=== PATIENT | male | born 1970 | race Caucasian/White ===

== ENCOUNTER 2017-07-08 23:51 | Emergency (ER) | payer MEDICAID ==
[~2017-07-08] VITALS: Ht 175.3 cm; Wt 79.4 kg
[2017-07-09 05:00] LABS: Basophils # (auto) 0 uL; Basophils % (auto) 0.3 % (0.0-2.0); Eosinophils # (auto) 0.3 uL; Eosinophils % (auto) 2.6 % (0.0-7.0); Hematocrit 43.8 % (41.0-53.0); Hemoglobin 14.8 g/dL (13.5-17.5); Lymphocytes # (auto) 1.8 uL; Lymphocytes % (auto) 15.3 % (10.0-50.0); Mean Corpuscular Hemoglobin 30.2 pg (28.0-32.0); Mean Corpuscular Hgb Conc. 33.8 g/dL (32.0-36.0); Mean Corpuscular Volume 89.4 fL (80.0-100.0); Monocytes # (auto) 1.1 uL; Monocytes % (auto) 9.3 % (0.0-12.0); Neutrophils # (auto) 8.6 uL; Neutrophils % (auto) 72.5 % (37.0-80.0); Nucleated Red Blood Cells % 0.2 %; Platelet Count (auto) 208 10^3/uL (140-450); Red Cell Distribution Width 12.4 % (11.8-14.3); White Blood Cell 11.8 10^3/uL (4.4-10.8)
[2017-07-09 05:14] LABS: Albumin 3.4 g/dL (3.4-5.0); BUN/Creatinine Ratio 10.7; Calcium 8.8 mg/dL (8.5-10.1); Potassium 3.9 mmol/L (3.5-5.1)
[2017-07-09 05:17] LABS: Bilirubin, Total 0.4 mg/dL (0.2-1.0); Total Protein 7.4 g/dL (6.4-8.2)
[2017-07-09 07:22] VITALS: BP 121/71
[2017-07-09] MEDS ORDERED: cefTRIAXone W LIDOCAINE 1 GM IM IM ONE (08:45)
[2017-07-09] MEDS ORDERED: cefTRIAXone SOD 1,000 MG VL ONE (08:47)
[2017-07-09] MEDS ORDERED: LIDOCAINE 1% HCL (LOCAL ANESTH.) INJ 20ML MDV ONE (08:47)
== END 2017-07-09 09:43 | disposition home or self-care (01) ==
LOC: ER 23:57
DX: N45.1 Epididymitis (principal); R30.0 Dysuria; R50.9 Fever, unspecified; F17.210 Nicotine dependence, cigarettes, uncomplicated; N43.3 Hydrocele, unspecified
CPT/HCPCS: 36415; 76870; 80053; 85025; 96372; 99285; J0696; J2001

== ENCOUNTER 2022-11-04 03:40 | Emergency (ER) | payer MEDICAID ==
[~2022-11-04] VITALS: Ht 175.3 cm; Wt 80.2 kg
[2022-11-04] MEDS ORDERED: IOHEXOL 350 MG/ML 100ML IJ ONE (04:24)
[2022-11-04] MEDS ORDERED: HYDROmorphone HCL 2 MG/ML VL/or syr IV ONE (04:45)
[2022-11-04] MEDS ORDERED: ONDANSETRON HCL 4 MG/2 ML VIAL IV ONE (04:45)
[2022-11-04 04:55] LABS: Basophils # (auto) 0 10 ^3/uL (0-0.2); Basophils % (auto) 0.5 % (0.0-2.0); Eosinophils # (auto) 0.3 10 ^3/uL (0-0.8); Eosinophils % (auto) 4.2 % (0.0-7.0); Hematocrit 44.7 % (41.0-53.0); Hemoglobin 15.1 g/dL (13.5-17.5); Lymphocytes # (auto) 2.4 10 ^3/uL (0.4-5.4); Lymphocytes % (auto) 30.6 % (10.0-50.0); Mean Corpuscular Hemoglobin 30.2 pg (28.0-32.0); Mean Corpuscular Hgb Conc. 33.7 g/dL (32.0-36.0); Mean Corpuscular Volume 89.5 fL (80.0-100.0); Monocytes # (auto) 0.7 10 ^3/uL (0-1.3); Neutrophils # (auto) 4.5 10 ^3/uL (1.6-8.6); Neutrophils % (auto) 55.7 % (37.0-80.0); Nucleated Red Blood Cells % 0.1 %; Red Blood Cells 4.99 10^6/uL (4.5-5.90); Red Cell Distribution Width 13.2 % (11.8-14.3)
[2022-11-04 05:15] LABS: Albumin 3.4 g/dL (3.4-5.0); Calcium 8.9 mg/dL (8.5-10.1)
[2022-11-04 05:20] LABS: BUN/Creatinine Ratio 12.5 (10.0-20.0); Bilirubin, Total 0.4 mg/dL (0.2-1.0)
[2022-11-04] MEDS ORDERED: SODIUM CHLORIDE 0.9% 1,000 ML IV ONE ×2 (06:45)
[2022-11-04 06:49] LABS: Urine Bacteria FEW /hpf (None Seen); Urine Blood 1+ /uL (Negative); Urine Specific Gravity 1.036 (1.001-1.035); Urine WBC 16 /hpf (0 - 3)
[2022-11-04] MEDS ORDERED: BACDST PO (07:12)
[2022-11-04 08:00] VITALS: BP 103/55
== END 2022-11-04 08:49 | disposition home or self-care (01) ==
LOC: ER 03:40
DX: N39.0 Urinary tract infection, site not specified (principal); R10.9 Unspecified abdominal pain
CPT/HCPCS: 36415; 71260; 74177; 80053; 81001; 82962; 83880; 84484; 85025; 96360; 96361; 99285; J7030; Q9967

== ENCOUNTER 2025-01-11 18:03 | Inpatient (IN) | payer MEDICAID ==
[~2025-01-11] VITALS: Ht 175.3 cm; Wt 89.0 kg
[~2025-01-11 18:03] MED LIST: BACDST PO
[2025-01-11 19:31] LABS: Hematocrit 48.8 % (41.0-53.0); Hemoglobin 16.9 g/dL (13.5-17.5); Mean Corpuscular Hemoglobin 30.5 pg (28.0-32.0); Mean Corpuscular Volume 88.1 fL (80.0-100.0); Nucleated Red Blood Cells % 0.1 %
--- NOTE | 2025-01-11 19:34 | ED.PDOC ---
History of Present Illness HPI Comments 55 y/o M presents with c/c generalized arm and leg pain. Patient endorses on exercising and working outside in the sun prior to then developing symptoms, earlier, today. Denies any fall, trauma, injuries, or further relevant events. Denies any additional symptoms at this time. Chief Complaint: Body Pain Time Seen by MD: 18:30 Primary Care Provider: YAHIR Ross Notes: Nurses Notes, Medications, Allergies Allergies: Coded Allergies: NO KNOWN ALLERGIES (Unverified , 02/19/12) Home Meds Active Scripts Sulfamethoxazole W/Trimethopri (Bactrim Ds Tablet) 1 Tab Tb, 1 TAB PO BID for 7 Days, #14 TAB Prov:BELINDA OGODRICH MD 11/04/22 Information Source: Patient Mode of Arrival: Ambulatory Past Medical History PAST MEDICAL HISTORY: Denies Surgical History: Denies all surgeries Family History Family History: Unobtainable Social History Smoker: Cigarettes, Less Than 1 Pack/Day Alcohol: Denies ETOH Use Drugs: Marijuana Lives In: Home All Other Systems: Reviewed and Negative (As per HPI) Physical Exam General Appearance: No Apparent Distress, Normal HEENT: Normal ENT Inspection, Pharynx Normal, TMs Normal, Other (dry mm) Neck: Full Range of Motion, Non-Tender, Normal, Normal Inspection Respiratory: Chest Non-Tender, Lungs Clear, No Accessory Muscle Use, No Respiratory Distress, Normal Breath Sounds Cardiovascular: No Edema, No JVD, No Murmur, No Gallop, Normal Peripheral Pulses, Regular Rate/Rhythm Breast Exam: Deferred Gastrointestinal: No Organomegaly, Non Tender, No Pulsatile Mass, Normal Bowel Sounds, Soft Genitalia: Deferred Pelvic: Deferred Rectal: Deferred Extremities: No calf tenderness, Normal capillary refill, Normal inspection, Normal range of motion, Non-tender, No pedal edema Musculoskeletal : Apperance: Normal Neurologic: Alert, cooling pan tender II-XII nml as Tested, No Motor Deficits, Normal Affect, Normal Mood, No Sensory Deficits Cerebellar Function: Normal Reflexes: Normal Skin: Dry, Normal Color, Warm Lymphatic: No Adenopathy Was a procedure done? Was a procedure done?: No Differential Dx Considerations may include: muscle spasms, sprain, electrolyte imbalance, dehydration, rhabdomyolysis, among others X-Ray, Labs, Meds, VS Vital Signs Date Time Temp Pulse Resp B/P (MAP) Pulse Ox O2 Delivery O2 Flow Rate FiO2 01/11/25 18:07 103 16 120/74 97 Lab Test 01/11/25 19:08 Range/Units White Blood Count 13.1 H 4.4-10.8 10^3/uL Red Blood Count 5.54 4.5-5.90 10^6/uL Hemoglobin 16.9 13.5-17.5 g/dL Hematocrit 48.8 41.0-53.0 % Mean Corpuscular Volume 88.1 80.0-100.0 fL Mean Corpuscular Hemoglobin 30.5 28.0-32.0 pg Mean Corpuscular Hemoglobin Concent 34.6 32.0-36.0 g/dL Red Cell Distribution Width 13.2 11.8-14.3 % Platelet Count 279 140-450 10^3/uL Mean Platelet Volume 8.8 6.9-10.8 fL Neutrophils (%) (Auto) 70.8 37.0-80.0 % Lymphocytes (%) (Auto) 17.7 10.0-50.0 % Monocytes (%) (Auto) 9.6 0.0-12.0 % Eosinophils (%) (Auto) 1.5 0.0-7.0 % Basophils (%) (Auto) 0.4 0.0-2.0 % Neutrophils # (Auto) 9.3 H 1.6-8.6 10 ^3/uL Lymphocytes # (Auto) 2.3 0.4-5.4 10 ^3/uL Monocytes # (Auto) 1.3 0-1.3 10 ^3/uL Eosinophils # (Auto) 0.2 0-0.8 10 ^3/uL Basophils # (Auto) 0.1 0-0.2 10 ^3/uL Nucleated Red Blood Cells 0.1 % Sodium Level 140 136-145 mmol/L Potassium Level 4.1 3.5-5.1 mmol/L Chloride Level 104 98-107 mmol/L Carbon Dioxide Level 27 20-31 mmol/L Anion Gap 9 5-15 Blood Urea Nitrogen 14 9-23 mg/dL Creatinine 1.91 H 0.700-1.30 mg/dL Glomerular Filtration Rate Calc 41 >90 mL/min BUN/Creatinine Ratio 7.3 L 10.0-20.0 Serum Glucose 75 74-106 mg/dL Calcium Level 10.4 8.7-10.4 mg/dL Total Bilirubin 0.4 0.2-1.0 mg/dL Aspartate Amino Transferase (AST) 25 13-40 U/L Alanine Aminotransferase (ALT) 24 7-40 U/L Alkaline Phosphatase 140 H 46-116 U/L Total Protein 7.8 5.7-8.2 g/dL Albumin 4.9 H 3.2-4.8 g/dL Time of 1ST Reevaluation: 19:00 Reevaluation 1ST: Unchanged Patient Education/Counseling: Diagnosis, Treatment, Need For Follow Up Family Education/Counseling: No Family Present Comments Patient presents with a feeling of generalized body weakness and on examination his mucous membranes membrane was dry. Patient reportedly has been working in the hot sun all day. His renal function has deteriorated from 1.2 baseline to 1.9 of creatinine. Patient will be admitted to the hospital for IV hydration and further monitoring of his renal function. Additional Information The following tests were ordered, and results were reviewed by me: CMP, CBC Additional Information was gathered from interviewing the following independent historians: N/A I reviewed and agreed with the following test results read by other providers: N/A I discussed treatment and results with medical personnel and: patient SEPSIS Sepsis Screen Date sepsis recognized/suspect: Jan 11, 2025 Time Sepsis recognized/suspect: 1806 Recent Procedure: No On Antibiotic Therapy: No Respiratory Rate >20: No Heart Rate >90: Yes Temp<36 C (96.8 F) or >38.3 C: No SBP <90 or MAP <65 mmHG: No New Acute Mental Status Change: No Is the patient on CPAP, BIPAP,: No Vital Signs Date Time Temp Pulse Resp B/P (MAP) Pulse Ox O2 Delivery O2 Flow Rate FiO2 01/11/25 18:07 103 16 120/74 97 Laboratory Tests Test 01/11/25 19:08 White Blood Count 13.1 10^3/uL (4.4-10.8) H Departure 1 Departure Time of Disposition: 21:26 Impression: Primary Impression: Dehydration Additional Impressions: Renal insufficiency Heat exhaustion, unspecified Heat exhaustion Disposition: ADMITTED INPATIENT Admit to: Med Surg Condition: Stable Discharged With: Self Critical Care Note Critical Care Time?: No Stability Stability form required: No Heart Score Heart Score: Heart Score Response (Comments) Value History N/A 0 EKG N/A 0 Age N/A 0 Risk Factors N/A 0 Troponin N/A 0 Total 0 I personally scribed for HELEN DIAL MD ([email or web address]) on 01/11/25 at 19:34. Electronically submitted by Abelardo Abdi ([email or web address]). HELEN DIAL MD Jan 11, 2025 19:34
[2025-01-11 19:37] LABS: Alanine Aminotransferase 24 U/L (7-40); Anion Gap 9 (5-15); BUN/Creatinine Ratio 7.3 (10.0-20.0); Blood Urea Nitrogen 14 mg/dL (9-23); Calcium 10.4 mg/dL (8.7-10.4); Carbon Dioxide 27 mmol/L (20-31); Chloride 104 mmol/L (98-107); Glucose 75 mg/dL (74-106); Potassium 4.1 mmol/L (3.5-5.1); Sodium 140 mmol/L (136-145); Total Protein 7.8 g/dL (5.7-8.2)
[2025-01-11 19:38] LABS: Bilirubin, Total 0.4 mg/dL (0.2-1.0)
[2025-01-11 19:43] LABS: Albumin 4.9 g/dL (3.2-4.8); Alkaline Phosphatase 140 U/L (46-116)
[2025-01-11] MEDS: SODIUM CHLORIDE 0.9% 1,000 ML IV SCH (21:45)
[2025-01-11] MEDS ORDERED: ACETAMINOPHEN 325 MG TAB PO PRN (21:45)
[2025-01-11] MEDS ORDERED: MORPHINE SULFATE INJ 2 MG/ml SYRG IV PRN (21:45)
[2025-01-11 22:09] LABS: Magnesium 2.2 mg/dL (1.6-2.6)
[2025-01-11 22:11] LABS: Cholesterol 189.0 mg/dL (< 200); HDL Cholesterol 51.0 mg/dL (40-59); Triglycerides 208.0 mg/dL (< 150)
[2025-01-11 22:14] LABS: INR 0.98 (0.9-1.15); Partial Thromboplastin Time 27.5 SEC (24.5-34.5); Prothrombin Time 10.4 sec (9.3-11.8)
[2025-01-11] MEDS ORDERED: AZITHROMYCIN 500MG/ 250ML 250 ML IV ONE (22:15)
[2025-01-11] MEDS ORDERED: NICOTINE 14 MG/24HR TOPICAL PATCH TD ONE (22:15)
--- NOTE | 2025-01-11 22:28 | DVHHPRES ---
History of Present Illness Resident Creating Document: RUDY SHAW History of Present Illness David Arevalo is a 55-year-old male patient who presents to ED with chief complaint of bilateral upper and lower limb cramping sensation after being exposed to to the sun (per patient he was outside from 10:00 a.m. to 3:00 p.m. on 01/11/2025), he started feeling cramping sensation at approximately 3:00 p.m. associated with dyspnea, nausea and cold chills. Patient says he has not had enough intake of fluids. Patient does complain of history of nocturia and he does mentioned previous history of UTI less than a year ago. Denies any other associated symptoms. Past medical history: Previous UTI Surgical history: Denies Family history: Noncontributory Social history: Lives in [place] with family (next of kin is ). Current tobacco use (30 pack-year history of smoking), occasional marijuana. Denies current alcohol and other drug abuse Allergies: Denies Home medication: Denies Patient seen and examined in [facility]. Currently bilateral cramps have mildly improved after IV fluids. No other complaints at this time. Past Medical History Per HPI Past Surgical History Per HPI Family History Per HPI Past Social History Per HPI Review of Systems Review of Systems Per HPI Allergies: Coded Allergies: NO KNOWN ALLERGIES (Unverified , 02/19/12) Medications Current Medications Medications Dose Ordered Sig/Mauro Route Start Time Stop Time Status Last Admin Dose Admin Sodium Chloride 1,000 ml @ 60 mls/hr [id number] IV 01/11/25 21:45 Acetaminophen 650 mg Q6HP PRN PO 01/11/25 21:45 Morphine Sulfate 2 mg Q4HPRN PRN IV 01/11/25 21:45 Enoxaparin Sodium 40 mg DAILY SC 01/12/25 10:00 Ceftriaxone Sodium 50 ml @ 100 mls/hr DAILY@2100 IV 01/12/25 21:00 Exam Vital Signs Vital Signs Date Time Temp Pulse Resp B/P (MAP) Pulse Ox O2 Delivery O2 Flow Rate FiO2 01/11/25 18:07 103 16 120/74 97 Exam Patient lying in bed, in no acute distress General: Lucid, unkempt, afebrile, mucosae are dry Cardiovascular: Normal S1 and S2, tachycardic. No murmurs, gallops or rubs Respiratory: Normal ventilation mechanics. Clear lung sounds on auscultation Abdomen: Soft, nontender, no organomegaly, normal bowel sounds MSK/skin: Mobilizes 4 limbs. Skin is dry and warm, scaly skin. Neurological: Oriented in 3 spheres. No motor no sensitive deficits. Pupils are isocoric and reactive Labs/Xrays Labs Test 01/11/25 19:08 Range/Units White Blood Count 13.1 H 4.4-10.8 10^3/uL Red Blood Count 5.54 4.5-5.90 10^6/uL Hemoglobin 16.9 13.5-17.5 g/dL Hematocrit 48.8 41.0-53.0 % Mean Corpuscular Volume 88.1 80.0-100.0 fL Mean Corpuscular Hemoglobin 30.5 28.0-32.0 pg Mean Corpuscular Hemoglobin Concent 34.6 32.0-36.0 g/dL Red Cell Distribution Width 13.2 11.8-14.3 % Platelet Count 279 140-450 10^3/uL Mean Platelet Volume 8.8 6.9-10.8 fL Neutrophils (%) (Auto) 70.8 37.0-80.0 % Lymphocytes (%) (Auto) 17.7 10.0-50.0 % Monocytes (%) (Auto) 9.6 0.0-12.0 % Eosinophils (%) (Auto) 1.5 0.0-7.0 % Basophils (%) (Auto) 0.4 0.0-2.0 % Neutrophils # (Auto) 9.3 H 1.6-8.6 10 ^3/uL Lymphocytes # (Auto) 2.3 0.4-5.4 10 ^3/uL Monocytes # (Auto) 1.3 0-1.3 10 ^3/uL Eosinophils # (Auto) 0.2 0-0.8 10 ^3/uL Basophils # (Auto) 0.1 0-0.2 10 ^3/uL Nucleated Red Blood Cells 0.1 % Sodium Level 140 136-145 mmol/L Potassium Level 4.1 3.5-5.1 mmol/L Chloride Level 104 98-107 mmol/L Carbon Dioxide Level 27 20-31 mmol/L Anion Gap 9 5-15 Blood Urea Nitrogen 14 9-23 mg/dL Creatinine 1.91 H 0.700-1.30 mg/dL Glomerular Filtration Rate Calc 41 >90 mL/min BUN/Creatinine Ratio 7.3 L 10.0-20.0 Serum Glucose 75 74-106 mg/dL Calcium Level 10.4 8.7-10.4 mg/dL Phosphorus Level 4.0 2.4-5.1 mg/dL Magnesium Level 2.2 1.6-2.6 mg/dL Total Bilirubin 0.4 0.2-1.0 mg/dL Aspartate Amino Transferase (AST) 25 13-40 U/L Alanine Aminotransferase (ALT) 24 7-40 U/L Alkaline Phosphatase 140 H 46-116 U/L Total Protein 7.8 5.7-8.2 g/dL Albumin 4.9 H 3.2-4.8 g/dL Triglycerides Level 208 H < 150 mg/dL Cholesterol Level 189 < 200 mg/dL LDL Cholesterol 120 H < 100 mg/dL HDL Cholesterol 51 40-59 mg/dL SEPSIS Sepsis Screen Date sepsis recognized/suspect: Jan 11, 2025 Time Sepsis recognized/suspect: 1806 Recent Procedure: No On Antibiotic Therapy: No Respiratory Rate >20: No Heart Rate >90: Yes Temp<36 C (96.8 F) or >38.3 C: No SBP <90 or MAP <65 mmHG: No New Acute Mental Status Change: No Is the patient on CPAP, BIPAP,: No Physician Orders Admit (01/11/25 21:44) Code Status (01/11/25 21:44) Vital Signs .PER UNIT PROTOCOL (01/11/25 21:44) Review Orders With Adm. (01/11/25 21:44) Regular Diet (01/12/25 Breakfast) Sodium Chloride 0.9% (01/11/25 21:45) Acetaminophen Tablet (Tylenol Tablet) (01/11/25 21:45) Notify Md Of Changes From Base (01/11/25 21:44) Advance Directive (01/11/25 21:44) Chest Two Views Routine (01/12/25 04:00) Patient Condition (01/11/25 21:44) Allergies (01/11/25 21:44) Morphine Sulfate Injection (01/11/25 21:45) Enoxaparin Sodium (Lovenox) (01/12/25 10:00) Oxygen By Nasal Cannula (01/11/25 21:44) Stat Ekg For Chest Pain (01/11/25 21:44) Notify Md Of Changes From Base (01/11/25 21:44) Obstetrics Nurse Practitioner For 24 Hours (01/11/25 21:44) Emergency Dysrhythmia Protocol (01/11/25 21:44) Rhythm Strips Once Every Shift (01/11/25 21:44) Sodium Chloride 0.9% (01/11/25 21:45) Blood Culture (01/11/25 21:44) Urine Bacterial Culture (01/11/25 21:44) Respiratory Culture W/ Gs (01/11/25 21:44) Vitamin D, 25-Hydroxy (01/11/25:44) Vitamin B12 (01/11/25:44) Urinalysis (01/11/25 21:44) Thyroid Stimulating Hormone (01/11/25 21:44) PTPTT (01/11/25 21:44) Lactic Acid W/ Reflex Order (01/11/25 21:44) Hemoglobin A1c (01/11/25 21:44) Drug Screen (01/11/25 21:44) Ceftriaxone 1gm/50ml (Rocephin) (01/12/25 21:00) Ceftriaxone 1gm/50ml (Rocephin) (01/11/25 22:00) Azithromycin 500mg/ 250ml (Zithromax 50 (01/12/25 10:00) Azithromycin 500mg/ 250ml (Zithromax 50 (01/11/25 22:15) Nicotine 14mg/24hr (Nicoderm 14mg/24hr) (01/11/25 22:15) Nicotine 14mg/24hr (Nicoderm 14mg/24hr) (01/12/25 10:00) Electrocardigram (01/11/25 22:10) Vital Signs Date Time Temp Pulse Resp B/P (MAP) Pulse Ox O2 Delivery O2 Flow Rate FiO2 01/11/25 18:07 103 16 120/74 97 Laboratory Tests Test 01/11/25 19:08 Lactic Acid Level Pending White Blood Count 13.1 10^3/uL (4.4-10.8) H Assessment/Plan Assessment/Plan Sepsis probably secondary to pneumonia versus UTI Probable community-acquired pneumonia Gram-positive/Gram-negative Rule out UTI Patient has 30 pack-year history of smoking, no follow up with pulmonology. Currently with no oxygen requirement Ordered pancultures (blood, sputum, urine) Pending urine analysis Currently under empiric IV antibiotic (azithromycin and ceftriaxone) Indicated IV fluid resuscitation ALLISON hemodynamically mediated (VMN) Dehydration Indicated fluid resuscitation Ordered multiple electrolytes to evaluate replenishment Tobacco abuse Patient has 30 pack-year history of smoking, no follow up with pulmonology. Counseled for over 16 minutes on cessation Patient agreed on using nicotine patch. Goals of care discussed with patient for over18 minutes: Full code status Discussed plan with Dr. Boykin, patient and nurses: Admitted patient to [facility], indicated IV fluids and empiric IV antibiotic. Pending culture, chest x- ray and laboratory workup. Plan discussed with: Patient, Other (Nurses) My Orders Orders - RUDY SHAW RESIDENT Procedure Category Date Status Time Admit ADMIT 01/11/25 Transmitted 21:44 Code Status CODE 01/11/25 Transmitted 21:44 Vital Signs [facility] 01/11/25 In Process 21:44 Review Orders With [facility] 01/11/25 In Process Adm. 21:44 Regular Diet DIET 01/12/25 Transmitted Breakfast Sodium Chloride 0.9% [facility] 01/11/25 In Process 21:45 Acetaminophen Tablet [facility] 01/11/25 In Process (Tylenol Tablet) 21:45 Notify Of Changes [facility] 01/11/25 In Process From Base 21:44 Advance Directive [facility] 01/11/25 In Process 21:44 Chest Two Views XY 01/12/25 Logged Routine 04:00 Patient Condition ORDERS 01/11/25 Transmitted 21:44 Allergies [facility] 01/11/25 In Process 21:44 Morphine Sulfate PHA 01/11/25 In Process Injection 21:45 Enoxaparin Sodium [facility] 01/12/25 In Process (Lovenox) 10:00 Oxygen By Nasal RT 01/11/25 Transmitted Cannula 21:44 Stat Ekg For Chest [facility] 01/11/25 In Process Pain 21:44 Notify Of Changes [facility] 01/11/25 In Process From Base 21:44 Obstetrics Nurse Practitioner For [facility] 01/11/25 In Process 24 Hours 21:44 Emergency Dysrhythmia [facility] 01/11/25 In Process Protocol 21:44 Rhythm Strips Once [facility] 01/11/25 In Process Every Shift 21:44 Sodium Chloride 0.9% [facility] 01/11/25 In Process 21:45 Blood Culture [facility] 01/11/25 In Process 21:44 Urine Bacterial [facility] 01/11/25 Logged Culture 21:44 Respiratory Culture [facility] 01/11/25 Logged W/ Gs 21:44 Vitamin D, 25-Hydroxy LAB 01/11/25 In Process 21:44 Vitamin B12 LAB 01/11/25 In Process 21:44 Urinalysis LAB 01/11/25 Logged 21:44 Thyroid Stimulating LAB 01/11/25 In Process Hormone 21:44 PTPTT LAB 01/11/25 In Process 21:44 Lactic Acid W/ Reflex LAB 01/11/25 In Process Order 21:44 Hemoglobin A1c LAB 01/11/25 In Process 21:44 Drug Screen LAB 01/11/25 Logged 21:44 Ceftriaxone 1gm/50ml PHA 01/12/25 In Process (Rocephin) 21:00 Ceftriaxone 1gm/50ml PHA 01/11/25 In Process (Rocephin) 22:00 Azithromycin 500mg/ PHA 01/12/25 Transmitted 250ml (Zithromax 50 10:00 Azithromycin 500mg/ PHA 01/11/25 Transmitted 250ml (Zithromax 50 22:15 Nicotine 14mg/24hr PHA 01/11/25 Transmitted (Nicoderm 14mg/24hr) 22:15 Nicotine 14mg/24hr PHA 01/12/25 Transmitted (Nicoderm 14mg/24hr) 10:00 Electrocardigram EKG 01/11/25 Transmitted 22:10 Date of Service: Jan 11, 2025 Billing Provider: RADHIKA BOYKIN MD Common Visit Codes: 58032-SPSODLZ INP/OBS CARE (HIGH) Secondary Visit Codes: 33255-AOOPJJIC CARE PLAN 30 MINUTES RUDY SHAW Jan 11, 2025 22:28
[2025-01-11] MEDS: SODIUM CHLORIDE 0.9% 1,000 ML IV ONE (23:00)
[2025-01-11 23:04] VITALS: PULSE 77; RESP 18; O2SAT 99
[2025-01-12] VITALS (8 sets, daily range): BP systolic 99–134; BP diastolic 64–89; PULSE 79–88; RESP 16–18; TEMP 97.7–98.3; O2SAT 94–98
[2025-01-12 01:59] LABS: Cannabinoid Screen, Urine Neg (NEGATIVE)
[2025-01-12 02:05] LABS: Urine Budding Yeast FEW /hpf (None Seen); Urine Protein, UAD 1+ (Negative)
[2025-01-12 02:12] LABS: Amphetamine Screen, Urine Pos (NEGATIVE); Barbiturate Scree,Urine Neg (NEGATIVE); Benzodiazephine Screen, Urine Neg (NEGATIVE); Cocaine Screen, Urine Neg (NEGATIVE); Opiate Scree,Urine Neg (NEGATIVE); Phencyclidine Screen, Urine Neg (NEGATIVE)
[2025-01-12] MEDS ORDERED: AZITHROMYCIN 500MG/ 250ML 250 ML IV ONE (04:35)
[2025-01-12] MEDS ORDERED: NICOTINE 14 MG/24HR TOPICAL PATCH TD ONE (04:35)
[2025-01-12] MEDS: NICOTINE 14 MG/24HR TOPICAL PATCH TD ONE (04:36)
[2025-01-12] MEDS: AZITHROMYCIN 500MG/ 250ML 250 ML IV ONE (04:50)
[2025-01-12 06:15] LABS: Hematocrit 44.8 % (41.0-53.0); Hemoglobin 15.4 g/dL (13.5-17.5); Mean Corpuscular Hemoglobin 30.4 pg (28.0-32.0); Mean Corpuscular Volume 88.5 fL (80.0-100.0); Nucleated Red Blood Cells % 0.1 %
[2025-01-12 06:39] LABS: Alanine Aminotransferase 20 U/L (7-40); Albumin 4.2 g/dL (3.2-4.8); Anion Gap 8 (5-15); BUN/Creatinine Ratio 9.3 (10.0-20.0); Bilirubin, Total 0.4 mg/dL (0.2-1.0); Blood Urea Nitrogen 14 mg/dL (9-23); Calcium 9.6 mg/dL (8.7-10.4); Carbon Dioxide 29 mmol/L (20-31); Chloride 104 mmol/L (98-107); Potassium 4.5 mmol/L (3.5-5.1); Sodium 141 mmol/L (136-145); Total Protein 6.7 g/dL (5.7-8.2)
[2025-01-12 06:50] LABS: Alkaline Phosphatase 124 U/L (46-116); Glucose 108 mg/dL (74-106)
--- NOTE | 2025-01-12 08:41 | DVH ---
CLINICAL INFORMATION: Sepsis. Rule out pneumonia. TECHNIQUE: Frontal and lateral chest radiographs were obtained. COMPARISON: CT CT CHEST/AB/PL W CON- IV ONLY on DOS: 11/04/22 FINDINGS: Lungs: Clear. Cardiac: Heart size is within normal limits. Pulmonary vasculature: Unremarkable Mediastinum/coral: Within normal limits. Bones: No evidence of acute osseous abnormality. Other: No other significant finding. IMPRESSION: No evidence of acute disease in the chest.
[2025-01-12] MEDS: ENOXAPARIN SOD 40 MG/0.4 ML SYRINGE SC SCH (09:21)
--- NOTE | 2025-01-12 21:53 | DVHPN2 ---
Subjective The patient is seen and examined at bedside. Complain of chest pain and cramping of his muscles. Reviewed: Care Plan, H&P, Labs, Medications, Previous Orders, Radiology Changes from previous H/P or p: No Changes Objective Vitals Vital Signs Date Time Temp Pulse Resp B/P (MAP) Pulse Ox O2 Delivery O2 Flow Rate FiO2 01/12/25 21:00 97.7 87 16 105/72 (83) 95 97.7 01/12/25 08:00 Room Air* 0 21 Intake/Output Intake and Output 01/12/25 07:00 Intake Total 100 ml Balance 100 ml Intake Oral 0 ml IV Total 100 ml # Voids 1 General Appearance: Alert, Oriented X3, Cooperative, No acute distress HEENT: Atraumatic, PERRLA, EOMI Neck: Supple Lungs: Clear to auscultation, Normal air movement Cardiovascular: Regular rate, Normal S1, Normal S2, No murmurs, Gallops, Rubs Abdomen: Normal bowel sounds, Soft, No tenderness Neuro: Cranial nerves 3-12 NL Psych/Mental Status: Mental status NL Medications Current Medications Medications Dose Ordered Sig/Mauro Route Start Time Stop Time Status Last Admin Dose Admin Sodium Chloride 1,000 ml @ 60 mls/hr [id number] IV 01/11/25 21:45 01/12/25 14:25 60 MLS/HR Acetaminophen 650 mg Q6HP PRN PO 01/11/25 21:45 Morphine Sulfate 2 mg Q4HPRN PRN IV 01/11/25 21:45 Enoxaparin Sodium 40 mg DAILY SC 01/12/25 10:00 01/12/25 09:21 40 MG Ceftriaxone Sodium 50 ml @ 100 mls/hr DAILY@0600 IV 01/13/25 06:00 Azithromycin 250 ml @ 125 mls/hr DAILY@0600 IV 01/13/25 06:00 Nicotine 1 patch DAILY@0600 TD 01/13/25 06:00 Laboratory Results Laboratory Tests 01/12/25 05:14 Chemistry Test 01/12/25 05:14 Albumin 4.2 g/dL (3.2-4.8) Calcium Level 9.6 mg/dL (8.7-10.4) Total Protein 6.7 g/dL (5.7-8.2) LFT Test 01/12/25 05:14 Alanine Aminotransferase (ALT) 20 U/L (7-40) Alkaline Phosphatase 124 U/L (46-116) H Aspartate Amino Transferase (AST) 20 U/L (13-40) Total Bilirubin 0.4 mg/dL (0.2-1.0) Urinalysis Test 01/11/25 23:59 Urine Color Yellow (Yellow) Urine Clarity Turbid (Clear) H Urine pH 5.5 (5.0-9.0) Urine Specific [place] 1.027 (1.001-1.035) Urine Protein 1+ (Negative) H Urine Ketones Negative (Negative) Urine Blood Negative /uL (Negative) Urine Nitrite Negative (Negative) Urine Bilirubin Negative (Negative) Urine Urobilinogen Normal mg/dL (Negative) Urine Leukocyte Esterase 1+ /uL (Negative) Urine RBC 14 /hpf (0 - 3) Urine Microscopic WBC 19 /HPF (0-3) H Urine Squamous Epithelial Cells Few /hpf (<5) Urine Transitional Epithelial Cells Few /hpf (<2) Urine Renal Epithelial Cells Few /hpf (None Seen) Urine Bacteria Mod /hpf (None Seen) H Urine Hyaline Casts Many /lpf (0 - 2) Urine Granular Casts Few /lpf (0) Urine Mucus Few (None Seen) Urine Yeast (Budding) Few /hpf (None Seen) Urine Glucose Normal mg/dL (Normal) Labs and/or images reviewed: Labs reviewed by me Assessment/Plan Assessment/Plan Sepsis probably secondary to pneumonia versus UTI Probable community-acquired pneumonia Gram-positive/Gram-negative Rule out UTI ALLISON hemodynamically mediated (VMN) Dehydration Tobacco abuse Continuing current management. We will monitor electrolytes and lab. Patient has 30 pack-year history of smoking, no follow up with pulmonology. Counseled for over 20 minutes on cessation Patient agreed on using nicotine patch. Continuing with IV antibiotic Rocephin and Zithromax. Continuing with nebulizer. This medical document was created using an electronic medical record system with [employer] direct computerized dictation system. Although this document has been carefully reviewed, there may still be some phonetic and typographical errors. These areas are purely typographical due to imperfections of the software programs, and do not reflect any compromise in the patient's medical care. Plan discussed with: Patient Date of Service: Jan 12, 2025 Billing Provider: PARVEEN MCDOWELL MD Common Visit Codes: 60901-[id number] INP/OBS CARE(HIGH) PARVEEN MCDOWELL MD Jan 12, 2025 21:53
[2025-01-13 01:00] VITALS: BP 124/86; PULSE 92; RESP 15; TEMP 97.9; O2SAT 97
[2025-01-13 05:00] VITALS: BP 111/75; PULSE 81; RESP 15; TEMP 98.1; O2SAT 96
[2025-01-13] MEDS: NICOTINE 14 MG/24HR TOPICAL PATCH TD SCH (05:37)
[2025-01-13] MEDS: AZITHROMYCIN 500MG/ 250ML 250 ML IV SCH (05:37)
[2025-01-13 08:00] VITALS: PULSE 86; RESP 17; O2SAT 98
[2025-01-13 09:00] VITALS: BP 116/72; PULSE 86; RESP 17; TEMP 97.5; O2SAT 98
[2025-01-13 10:26] LABS: Hematocrit 43.6 % (41.0-53.0); Hemoglobin 15.1 g/dL (13.5-17.5); Mean Corpuscular Hemoglobin 30.6 pg (28.0-32.0); Mean Corpuscular Volume 88.6 fL (80.0-100.0); Nucleated Red Blood Cells % 0.0 %
[2025-01-13 10:30] LABS: Chloride 105 mmol/L (98-107); Potassium 4.6 mmol/L (3.5-5.1); Sodium 140 mmol/L (136-145)
[2025-01-13 10:31] LABS: Anion Gap 6 (5-15); Carbon Dioxide 29 mmol/L (20-31)
[2025-01-13 10:32] LABS: Calcium 9.0 mg/dL (8.7-10.4)
[2025-01-13 10:37] LABS: BUN/Creatinine Ratio 8.9 (10.0-20.0); Blood Urea Nitrogen 10 mg/dL (9-23)
--- NOTE | 2025-01-13 10:56 | DVHPN2 ---
Subjective The patient is seen and examined at bedside. Complain of chest pain and cramping of his muscles. Reviewed: Care Plan, H&P, Labs, Medications, Previous Orders, Radiology Objective Vitals Vital Signs Date Time Temp Pulse Resp B/P (MAP) Pulse Ox O2 Delivery O2 Flow Rate FiO2 01/13/25 09:00 97.5 86 17 116/72 (87) 98 97.5 01/12/25 20:00 Room Air* 0 21 Intake/Output Intake and Output 01/13/25 07:00 Intake Total 2755 ml Output Total 900 ml Balance 1855 ml Intake Oral 2705 ml IV Total 50 ml Output Urine Total 900 ml # Voids 3 # Bowel Movements 3 General Appearance: Alert, Oriented X3, Cooperative, No acute distress HEENT: Atraumatic, PERRLA, EOMI Neck: Supple Lungs: Clear to auscultation, Normal air movement Cardiovascular: Regular rate, Normal S1, Normal S2, No murmurs, Gallops, Rubs Abdomen: Normal bowel sounds, Soft, No tenderness Neuro: Cranial nerves 3-12 NL Psych/Mental Status: Mental status NL Medications Current Medications Medications Dose Ordered Sig/Mauro Route Start Time Stop Time Status Last Admin Dose Admin Sodium Chloride 1,000 ml @ 60 mls/hr [id number] IV 01/11/25 21:45 01/13/25 07:05 60 MLS/HR Acetaminophen 650 mg Q6HP PRN PO 01/11/25 21:45 Morphine Sulfate 2 mg Q4HPRN PRN IV 01/11/25 21:45 Enoxaparin Sodium 40 mg DAILY SC 01/12/25 10:00 01/12/25 09:21 40 MG Ceftriaxone Sodium 50 ml @ 100 mls/hr DAILY@0600 IV 01/13/25 06:00 01/13/25 04:57 100 MLS/HR Azithromycin 250 ml @ 125 mls/hr DAILY@0600 IV 01/13/25 06:00 01/13/25 05:37 125 MLS/HR Nicotine 1 patch DAILY@0600 TD 01/13/25 06:00 01/13/25 05:37 1 PATCH Laboratory Results Chemistry Test 01/13/25 10:01 Calcium Level Pending Urinalysis Test 01/11/25 23:59 Urine Color Yellow (Yellow) Urine Clarity Turbid (Clear) H Urine pH 5.5 (5.0-9.0) Urine Specific [place] 1.027 (1.001-1.035) Urine Protein 1+ (Negative) H Urine Ketones Negative (Negative) Urine Blood Negative /uL (Negative) Urine Nitrite Negative (Negative) Urine Bilirubin Negative (Negative) Urine Urobilinogen Normal mg/dL (Negative) Urine Leukocyte Esterase 1+ /uL (Negative) Urine RBC 14 /hpf (0 - 3) Urine Microscopic WBC 19 /HPF (0-3) H Urine Squamous Epithelial Cells Few /hpf (<5) Urine Transitional Epithelial Cells Few /hpf (<2) Urine Renal Epithelial Cells Few /hpf (None Seen) Urine Bacteria Mod /hpf (None Seen) H Urine Hyaline Casts Many /lpf (0 - 2) Urine Granular Casts Few /lpf (0) Urine Mucus Few (None Seen) Urine Yeast (Budding) Few /hpf (None Seen) Urine Glucose Normal mg/dL (Normal) Microbiology Microbiology Date/Time Source Procedure Growth Status 01/11/25 23:59 Voided Urine Urine Culture - Preliminary Resulted 01/11/25 22:04 Blood Blood Culture - Preliminary NO GROWTH AFTER 24 HOURS OF INCUBATION. Resulted Assessment/Plan Assessment/Plan Sepsis probably secondary to pneumonia versus UTI Probable community-acquired pneumonia Gram-positive/Gram-negative Rule out UTI ALLISON hemodynamically mediated (VMN) Dehydration Tobacco abuse Continuing current management. We will monitor electrolytes and lab. Patient has 30 pack-year history of smoking, no follow up with pulmonology. Counseled for over 20 minutes on cessation Patient agreed on using nicotine patch. Continuing with IV antibiotic Rocephin and Zithromax. Continuing with nebulizer. This medical document was created using an electronic medical record system with [employer] direct computerized dictation system. Although this document has been carefully reviewed, there may still be some phonetic and typographical errors. These areas are purely typographical due to imperfections of the software programs, and do not reflect any compromise in the patient's medical care. My Orders Orders - PARVEEN MCDOWELL MD Procedure Category Date Status Time Complete Blood Count LAB 01/13/25 In Process 05:00 Complete Blood Count LAB 01/14/25 Verified 05:00 Complete Blood Count LAB 01/15/25 Verified 05:00 Complete Blood Count LAB 01/16/25 Verified 05:00 Complete Blood Count LAB 01/17/25 Verified 05:00 Basic Metabolic Panel LAB 01/13/25 In Process 05:00 Basic Metabolic Panel LAB 01/14/25 Verified 05:00 Basic Metabolic Panel LAB 01/15/25 Verified 05:00 Basic Metabolic Panel LAB 01/16/25 Verified 05:00 Basic Metabolic Panel LAB 01/17/25 Verified 05:00 PARVEEN MCDOWELL MD Jan 13, 2025 10:56
[2025-01-13 11:10] LABS: Glucose 69 mg/dL (74-106)
[2025-01-13] MEDS ORDERED: AZIT-185 PO (12:25)
--- NOTE | 2025-01-13 12:26 | DVHDS2 ---
Discharge Summary Date of Admission Jan 11, 2025 at 21:44 Date of Discharge: Jan 13, 2025 Admitting Diagnosis Sepsis probably secondary to pneumonia versus UTI Probable community-acquired pneumonia Gram-positive/Gram-negative Rule out UTI ALLISON hemodynamically mediated (VMN) Dehydration Tobacco abuse Labs/Diagnostic Data: Laboratory Results Test 01/13/25 10:01 01/12/25 05:14 01/11/25 23:59 01/11/25 19:08 White Blood Count 7.2 10^3/uL (4.4-10.8) Red Blood Count 4.92 10^6/uL (4.5-5.90) Hemoglobin 15.1 g/dL (13.5-17.5) Hematocrit 43.6 % (41.0-53.0) Mean Corpuscular Volume 88.6 fL (80.0-100.0) Mean Corpuscular Hemoglobin 30.6 pg (28.0-32.0) Mean Corpuscular Hemoglobin Concent 34.6 g/dL (32.0-36.0) Red Cell Distribution Width 12.9 % (11.8-14.3) Platelet Count 209 10^3/uL (140-450) Mean Platelet Volume 8.9 fL (6.9-10.8) Neutrophils (%) (Auto) 59.3 % (37.0-80.0) Lymphocytes (%) (Auto) 27.7 % (10.0-50.0) Monocytes (%) (Auto) 9.1 % (0.0-12.0) Eosinophils (%) (Auto) 3.3 % (0.0-7.0) Basophils (%) (Auto) 0.6 % (0.0-2.0) Neutrophils # (Auto) 4.3 10 ^3/uL (1.6-8.6) Lymphocytes # (Auto) 2.0 10 ^3/uL (0.4-5.4) Monocytes # (Auto) 0.7 10 ^3/uL (0-1.3) Eosinophils # (Auto) 0.2 10 ^3/uL (0-0.8) Basophils # (Auto) 0 10 ^3/uL (0-0.2) Nucleated Red Blood Cells 0.0 % Sodium Level 140 mmol/L (136-145) Potassium Level 4.6 mmol/L (3.5-5.1) Chloride Level 105 mmol/L (98-107) Carbon Dioxide Level 29 mmol/L (20-31) Anion Gap 6 (5-15) Blood Urea Nitrogen 10 mg/dL (9-23) Creatinine 1.12 mg/dL (0.700-1.30) Glomerular Filtration Rate Calc 77 mL/min (>90) BUN/Creatinine Ratio 8.9 (10.0-20.0) Serum Glucose 69 mg/dL (74-106) Calcium Level 9.0 mg/dL (8.7-10.4) Total Bilirubin 0.4 mg/dL (0.2-1.0) Aspartate Amino Transferase (AST) 20 U/L (13-40) Alanine Aminotransferase (ALT) 20 U/L (7-40) Alkaline Phosphatase 124 U/L (46-116) Total Protein 6.7 g/dL (5.7-8.2) Albumin 4.2 g/dL (3.2-4.8) Urine Color Yellow (Yellow) Urine Clarity Turbid (Clear) Urine pH 5.5 (5.0-9.0) Urine Specific [place] 1.027 (1.001-1.035) Urine Protein 1+ (Negative) Urine Ketones Negative (Negative) Urine Blood Negative /uL (Negative) Urine Nitrite Negative (Negative) Urine Bilirubin Negative (Negative) Urine Urobilinogen Normal mg/dL (Negative) Urine Leukocyte Esterase 1+ /uL (Negative) Urine RBC 14 /hpf (0 - 3) Urine Microscopic WBC 19 /HPF (0-3) Urine Squamous Epithelial Cells Few /hpf (<5) Urine Transitional Epithelial Cells Few /hpf (<2) Urine Renal Epithelial Cells Few /hpf (None Seen) Urine Bacteria Mod /hpf (None Seen) Urine Hyaline Casts Many /lpf (0 - 2) Urine Granular Casts Few /lpf (0) Urine Mucus Few (None Seen) Urine Yeast (Budding) Few /hpf (None Seen) Urine Glucose Normal mg/dL (Normal) Urine Opiates Screen Neg (NEGATIVE) Urine Fentanyl Screen Neg (NEGATIVE) Urine Barbiturates Screen Neg (NEGATIVE) Urine Phencyclidine Screen Neg (NEGATIVE) Urine Amphetamines Screen Pos (NEGATIVE) Urine Benzodiazepines Screen Neg (NEGATIVE) Urine Cocaine Screen Neg (NEGATIVE) Urine Cannabinoids Screen Neg (NEGATIVE) Prothrombin Time 10.4 sec (9.3-11.8) Prothrombin Time INR 0.98 (0.9-1.15) Activated Partial Thromboplast Time 27.5 SEC (24.5-34.5) Hemoglobin A1c 5.8 % A1C (<5.7) Lactic Acid Level 1.9 mmol/L (0.4-2.0) Phosphorus Level 4.0 mg/dL (2.4-5.1) Magnesium Level 2.2 mg/dL (1.6-2.6) Triglycerides Level 208 mg/dL (< 150) Cholesterol Level 189 mg/dL (< 200) LDL Cholesterol 120 mg/dL (< 100) HDL Cholesterol 51 mg/dL (40-59) Vitamin B12 Level 370 pg/mL (211-911) Vitamin D 25-Hydroxy 32.1 ng/mL (30.0-100) Thyroid Stimulating Hormone (TSH) 2.24 uIU/mL (0.55-4.78) Other Laboratory Tests 01/13/25 10:01 Brief Hx & Hospital Course: This is a 55 years old male come into emergency department because bilateral upper and lower extremity cramping, the patient said he started having this problem after he exposed to the sun. The patient was outside from 10:00 a.m. to 3:00 p.m. on 01/11/2025. He then feel cramping with dyspnea, nausea, cold chills. The patient did not take a lot of fluid. The patient was admitted. The patient was found to have pneumonia with Gram-positive negative bacteria. Urine culture also sent for possible UTI per the sample come back with less than 10,000 colonies. Blood culture is negative x2. The patient was on Rocephin 1 g IV q.day and Zithromax 500 mg IV q.day. The patient also was given IV fluid for resuscitation. The patient feel much better today. I am going to discharge the patient home. Advised the patient to drink plenty of water when he out on the son to prevent heat stroke. Advised the patient to follow up with primary care physician 1-2 weeks. Activity as tolerated. Diet per home diet. Physical exam: HEENT: Normocephalic atraumatic pupils equal react to light and accommodation. Extraocular muscles intact, conjunctiva pink, oropharynx moist, no thrush, no exudate. Lymphatic: No lymphadenopathy Cardiovascular exam: S1, S2 was heard. No murmurs, rubs, gallops Lung: Clear on auscultation bilaterally, no wheeze, rale, rhonchi. GI: Abdominal soft, nondistended, nontenderness, positive bowel sounds. Extremity: No crepitus, cyanosis, edema. Pedal pulses present bilateral. Full range of motion. Skin: Normal turgor, no rash. Psych: Alert, oriented x3. Neurology: No focal deficits, cranial nerve II to XII grossly intact. This medical document was created using an electronic medical record system with [employer] direct computerized dictation system. Although this document has been carefully reviewed, there may still be some phonetic and typographical errors. These areas are purely typographical due to imperfections of the software programs, and do not reflect any compromise in the patient's medical care. Condition at Discharge: Stable Final Diagnosis/Problems List Sepsis probably secondary to pneumonia Community-acquired pneumonia Gram-positive/Gram-negative Rule out UTI ALLISON hemodynamically mediated (VMN) Dehydration Tobacco abuse Discharge Disposition: Home Discharge Instruct/Medications Diet: Regular Activity: No Restrictions, As Tolerated Follow Up/Referral: PCP 1-2 WEEKS Medications: ZPAK UNTIL FINISH Scheduled Azithromycin (Zithromax Tablet), 250 MG PO DAILY Discharge Statement: "Patient was advised to return to the ER or call 911 if any headaches, dizziness, shortness of breath, chest pain, abdominal pain, bleeding, fevers, or worsening of medical condition. Patient was counseled about treatment plan, medications, possible side effects, patientverbalized understanding. All questions were answered to the best of my ability. This discharge took greater then 30 minutes in planning, reviewing documentation, counseling the patient, and discussing with other team members." ASSESSMENT ASSESSMENT Assessment PNA Date of Service: Jan 13, 2025 Billing Provider: PARVEEN MCDOWELL MD Common Visit Codes: 71957-WZE/OBS DISCH DAY >30min PARVEEN MCDOWELL MD Jan 13, 2025 12:26
[2025-01-13 13:00] VITALS: BP 118/70; PULSE 83; RESP 17; TEMP 98; O2SAT 97
[2025-01-13 14:36] VITALS: BP 118/70; PULSE 83; RESP 17; TEMP 36.7; O2SAT 97
== END 2025-01-13 16:30 | disposition home or self-care (01) | DRG 720 ==
LOC: ER 18:06 → OVERFLOW 21:44 → CENTRAL 01-12 01:45
PROVIDERS: ADMIT Internal Medicine; ATTEND Internal Medicine
DX: A41.50 Gram-negative sepsis, unspecified (principal); N17.0 Acute kidney failure with tubular necrosis; J15.69 Pneumonia due to other Gram-negative bacteria; J15.9 Unspecified bacterial pneumonia; E86.0 Dehydration; N39.0 Urinary tract infection, site not specified; F17.210 Nicotine dependence, cigarettes, uncomplicated; T67.5XXA Heat exhaustion, unspecified, initial encounter; Y93.89 Activity, other specified; Y92.89 Other specified places as the place of occurrence of the external cause; Y99.8 Other external cause status; X30.XXXA Exposure to excessive natural heat, initial encounter
CPT/HCPCS: 36415; 71046; 80048; 80053; 80061; 80307; 81001; 82306; 82607; 83036; 83605; 83735; 84100; 84443; 85025; 85610; 85730; 87040; 87086; G0378